=== PATIENT | male | born 1935 | race Caucasian/White ===

== ENCOUNTER → 2017-12-13 | Outpatient (CLI) | payer BC ==
--- NOTE | 2017-12-13 15:38 | DIAGNOSTIC IMAGING REPORT ---
BONE SCAN WHOLE BODY HISTORY: Prostate carcinoma C61 Prostate CAno latex allergy RADIOTRACER: 25 mCi Tc-99m MDP STUDY/IMAGES: Planar anterior and posterior whole body imaging was performed 3 hours following the intravenous administration of radiotracer. COMPARISON: None. FINDINGS: Increased activity right frontal and facial region consistent with hyperostosis frontalis. Increased activity at the L2-L3 level of the lumbar spine possibly degenerative although correlated plain films are suggested. Images of the axial and appendicular skeleton are otherwise unremarkable. There is minimal scattered degenerative activity in the shoulders knees and feet. IMPRESSION: 1. Increased activity at the L2 and L3 level lumbar spine and to a lesser extent frontal and facial region. 2. Specific images of the lumbar spine as well as maxillofacial region are suggested to exclude metastatic change 3. Bone scan is otherwise negative. The above report was generated using voice recognition software. It may contain grammatical, syntax or spelling errors. Electronically signed by: Da Quinonez M.D. 12/13/2017 3:37 PM Dictated Date/Time: 12/13/2017 3:33 PM
== END | disposition home or self-care (01) ==
LOC: C.NUCL 11:39
PROVIDERS: ATTEND Urology
DX: C61 Malignant neoplasm of prostate (principal); R94.8 Abnormal results of function studies of other organs and systems